=== PATIENT | male | born 1940 | race Caucasian/White ===

== ENCOUNTER 2018-09-20 19:31 | Emergency (ER) | payer MEDICARE, BC ==
--- NOTE | 2018-09-20 21:20 | EDM.PDOC ---
ED HPI GENERAL MEDICAL PROBLEM - General Chief Complaint: General Stated Complaint: MEDICAL Time Seen by Provider: 09/20/18 21:03 Source of Information: Reports: Patient, Family, RN Notes Reviewed History Limitations: Reports: No Limitations - History of Present Illness INITIAL COMMENTS - FREE TEXT/NARRATIVE: 78-year-old gentleman presents to emergency Department a complaint of fatigue, family states that he has fatigue for several months but has progressively gotten worse however is traveling on vacation they've noticed his she has gotten significantly worse he will fall asleep at any point in time has no motivation. He does admit to left arm pain which has been going on for the last 3 days also complains of some vague abdominal pain no shortness of breath no chest pain no nausea vomiting no diaphoresis no problems with bowel movements - Related Data Allergies Allergy/AdvReac Type Severity Reaction Status Date / Time No Known Allergies Allergy Verified 09/20/18 19:56 Home Meds: Home Meds Allopurinol [Zyloprim] 100 mg PO DAILY 09/20/18 [History] Benazepril [Lotensin] 5 mg PO DAILY 09/20/18 [History] Calcitriol 0.5 mcg PO DAILY 09/20/18 [History] Diltiazem HCl [Cardizem Cd] 360 mg PO DAILY 09/20/18 [History] Ferrous Sulfate 325 mg PO BID 09/20/18 [History] Furosemide 40 mg PO DAILY 09/20/18 [History] Furosemide 80 mg PO DAILY 09/20/18 [History] Gabapentin [Neurontin] 300 mg PO DAILY 09/20/18 [History] Insulin Glarg,Human.Rec.Analog [Lantus Solostar] 10 unit SUBCUT BEDTIME [History] Multivitamin [Multi-Vitamin Daily] 1 tab PO DAILY 09/20/18 [History] Pravastatin [Pravachol] 40 mg PO DAILY 09/20/18 [History] Vit C/Ascorbate Ca/Ascorb Sod [Vitamin C] 1 tab PO DAILY 09/20/18 [History] Warfarin [Coumadin] 5 mg PO DAILY 09/20/18 [History] Zinc Gluconate-Zinc Picolinate [Zinc] 1 tab PO DAILY 09/20/18 [History] glipiZIDE [Glucotrol XL] 5 mg PO BRK 09/20/18 [History] hydrALAZINE HCl [Hydralazine HCl] 100 mg PO BID 09/20/18 [History] Past Medical History Cardiovascular History: Reports: Afib, Heart Failure, Heart Valve Replacement, High Cholesterol, Hypertension Gastrointestinal History: Reports: Bowel Obstruction Genitourinary History: Reports: Chronic Renal Insuffiency Musculoskeletal History: Reports: Arthritis, Fracture, Gout Endocrine/Metabolic History: Reports: Diabetes, Type I - Infectious Disease History Infectious Disease History: Reports: Influenza, Pertussis (Whooping Cough) - Past Surgical History GI Surgical History: Reports: Appendectomy, Other (See Below) Other GI Surgeries/Procedures: release of bowel obstruction Social & Family History - Tobacco Use Smoking Status *Q: Current Some Day Smoker Years of Tobacco use: 45 Packs/Tins Daily: 2 Second Hand Smoke Exposure: No - Caffeine Use Caffeine Use: Reports: None - Recreational Drug Use Recreational Drug Use: No ED ROS GENERAL - Review of Systems Review Of Systems: See Below Constitutional: Reports: Weakness, Fatigue HEENT: Reports: No Symptoms Respiratory: Reports: No Symptoms Cardiovascular: Reports: No Symptoms GI/Abdominal: Reports: Abdominal Pain, Flatus. Denies: Constipation, Diarrhea, Nausea, Vomiting : Reports: No Symptoms Musculoskeletal: Reports: Shoulder Pain Skin: Reports: No Symptoms Neurological: Reports: No Symptoms ED EXAM, GENERAL - Physical Exam Exam: See Below Free Text/Narrative:: General: Male, not in any distress, alert and oriented x3 HEENT: head is atraumatic normocephalic, eyes pupils equal round reactive to light, sclera clear no conjunctivitis appreciated. Ears tympanic membranes clear and guthrie landmarks and light reflex are present bilaterally canals are clear. Nose no septal deviation, nares are clear, no blood present. Mouth mucosa is moist and pink no erythema or exudate noted in soft palate, tongue is midline uvula is midline, dentition is intact. Neck: Supple no thyromegaly no tracheal deviation. Nodes: Cervical nodes subclavicular nodes nontender no palpable lymphadenopathy noted. Lungs: clear to auscultation bilaterally with symmetrical respirations, no adventitious noise appreciated. CV: Regular rate and rhythm S1 and S2 appreciated no murmurs rubs or gallops noted. Abdomen: Soft, nontender, no palpable masses or organomegaly appreciated, no distention no guarding bowel sounds are present, surgical scar is clean dry and intact. Neuro: GCS of 15 Skin: Warm and dry, intact Extremities: Trace lower extremity edema appreciated, . Course - Vital Signs Last Recorded V/S: Last Vital Signs Temp 98.4 F 09/20/18 20:06 Pulse 64 09/20/18 20:06 Resp 29 H 09/20/18 20:58 BP 182/68 H 09/20/18 20:58 Pulse Ox 98 09/20/18 20:06 - Orders/Labs/Meds Orders: Active Orders 24 hr Category Date Time Status Cardiac Monitoring [RC] STAT Care 09/20/18 22:18 Active Communication Order [RC] Per Unit Routine Care 09/20/18 22:18 Active Communication Order [RC] Per Unit Routine Care 09/20/18 22:18 Active EKG Documentation Completion [RC] ASDIRECTED Care 09/20/18 21:16 Active Peripheral IV Care [RC] . DIRECTED Care 09/20/18 22:41 Active Chest 1V Frontal [CR] Urgent Exams 09/20/18 21:15 Taken Morphine Med 09/20/18 22:18 Active 4 mg IVPUSH Q10M PRN Sodium Chloride 0.9% [Saline Flush] Med 09/20/18 22:41 Active 10 ml FLUSH ASDIRECTED PRN Peripheral IV Insertion Adult [OM.PC] Urgent Oth 09/20/18 22:41 Ordered EKG 12 Lead [EK] Urgent Ther 09/20/18 21:15 Ordered Medication Orders Morphine Sulfate (Morphine) 4 mg IVPUSH Q10M PRN PRN Reason: Chest Pain Stop: 09/21/18 22:19 Sodium Chloride (Saline Flush) 10 ml FLUSH ASDIRECTED PRN PRN Reason: Keep Vein Open Labs: Laboratory Tests 09/20/18 09/20/18 09/20/18 Range/Units 21:33 21:33 21:33 WBC 15.7 H (4.5-11.0) K/uL RBC 3.80 L (4.30-5.90) M/uL Hgb 10.9 L (12.0-15.0) g/dL Hct 34.0 L (40.0-54.0) % MCV 90 (80-98) fL MCH 29 (27-31) pg MCHC 32 (32-36) % Plt Count 184 (150-400) K/uL Neut % (Auto) 83 H (36-66) % Lymph % (Auto) 6 L (24-44) % [place] % (Auto) 10 H (2-6) % Eos % (Auto) 1 L (2-4) % Baso % (Auto) 0 (0-1) % PT (9.5-12.0) sec INR (0.80-1.20) APTT (27.0-36.0) sec D-Dimer, Quantitative 523 H (0.0-400.0) ng/mL Sodium 140 (140-148) mmol/L Potassium 5.1 (3.6-5.2) mmol/L Chloride 105 (100-108) mmol/L Carbon Dioxide 26 (21-32) mmol/L Anion Gap 9.4 (5.0-14.0) mmol/L BUN 49 H (7-18) mg/dL Creatinine 3.3 H (0.8-1.3) mg/dL Est Cr Clr Drug Dosing 22.88 mL/min Estimated GFR (MDRD) 18 L (>60) Glucose 121 H (74-106) mg/dL Lactic Acid (0.4-2.0) mmol/L Calcium 9.8 (8.5-10.1) mg/dL Total Bilirubin 0.4 (0.2-1.0) mg/dL AST 14 L (15-37) U/L ALT 21 (12-78) U/L Alkaline Phosphatase 100 (46-116) U/L Ammonia (11-32) mmol/L Troponin I 0.521 H* (0.000-0.056) ng/mL C-Reactive Protein (0.0-0.3) mg/dL Total Protein 7.0 (6.4-8.2) g/dL Albumin 2.9 L (3.4-5.0) g/dL Globulin 4.1 H (2.3-3.5) g/dL Albumin/Globulin Ratio 0.7 L (1.2-2.2) Lipase 168 (73-393) U/L Procalcitonin ng/mL TSH, Ultra Sensitive 0.674 (0.358-3.740) uIU/mL Ethyl Alcohol mg/dL 09/20/18 09/20/18 09/20/18 Range/Units 21:33 21:33 21:33 WBC (4.5-11.0) K/uL RBC (4.30-5.90) M/uL Hgb (12.0-15.0) g/dL Hct (40.0-54.0) % MCV (80-98) fL MCH (27-31) pg MCHC (32-36) % Plt Count (150-400) K/uL Neut % (Auto) (36-66) % Lymph % (Auto) (24-44) % [place] % (Auto) (2-6) % Eos % (Auto) (2-4) % Baso % (Auto) (0-1) % PT (9.5-12.0) sec INR (0.80-1.20) APTT (27.0-36.0) sec D-Dimer, Quantitative (0.0-400.0) ng/mL Sodium (140-148) mmol/L Potassium (3.6-5.2) mmol/L Chloride (100-108) mmol/L Carbon Dioxide (21-32) mmol/L Anion Gap (5.0-14.0) mmol/L BUN (7-18) mg/dL Creatinine (0.8-1.3) mg/dL Est Cr Clr Drug Dosing mL/min Estimated GFR (MDRD) (>60) Glucose (74-106) mg/dL Lactic Acid 0.9 (0.4-2.0) mmol/L Calcium (8.5-10.1) mg/dL Total Bilirubin (0.2-1.0) mg/dL AST (15-37) U/L ALT (12-78) U/L Alkaline Phosphatase (46-116) U/L Ammonia 6 L (11-32) mmol/L Troponin I (0.000-0.056) ng/mL C-Reactive Protein 14.57 H (0.0-0.3) mg/dL Total Protein (6.4-8.2) g/dL Albumin (3.4-5.0) g/dL Globulin (2.3-3.5) g/dL Albumin/Globulin Ratio (1.2-2.2) Lipase (73-393) U/L Procalcitonin ng/mL TSH, Ultra Sensitive (0.358-3.740) uIU/mL Ethyl Alcohol mg/dL 09/20/18 09/20/18 09/20/18 Range/Units 21:33 21:33 22:28 WBC (4.5-11.0) K/uL RBC (4.30-5.90) M/uL Hgb (12.0-15.0) g/dL Hct (40.0-54.0) % MCV (80-98) fL MCH (27-31) pg MCHC (32-36) % Plt Count (150-400) K/uL Neut % (Auto) (36-66) % Lymph % (Auto) (24-44) % [place] % (Auto) (2-6) % Eos % (Auto) (2-4) % Baso % (Auto) (0-1) % PT 45.5 H (9.5-12.0) sec INR 4.59 H* (0.80-1.20) APTT 57.3 H (27.0-36.0) sec D-Dimer, Quantitative (0.0-400.0) ng/mL Sodium (140-148) mmol/L Potassium (3.6-5.2) mmol/L Chloride (100-108) mmol/L Carbon Dioxide (21-32) mmol/L Anion Gap (5.0-14.0) mmol/L BUN (7-18) mg/dL Creatinine (0.8-1.3) mg/dL Est Cr Clr Drug Dosing mL/min Estimated GFR (MDRD) (>60) Glucose (74-106) mg/dL Lactic Acid (0.4-2.0) mmol/L Calcium (8.5-10.1) mg/dL Total Bilirubin (0.2-1.0) mg/dL AST (15-37) U/L ALT (12-78) U/L Alkaline Phosphatase (46-116) U/L Ammonia (11-32) mmol/L Troponin I (0.000-0.056) ng/mL C-Reactive Protein (0.0-0.3) mg/dL Total Protein (6.4-8.2) g/dL Albumin (3.4-5.0) g/dL Globulin (2.3-3.5) g/dL Albumin/Globulin Ratio (1.2-2.2) Lipase (73-393) U/L Procalcitonin 0.92 ng/mL TSH, Ultra Sensitive (0.358-3.740) uIU/mL Ethyl Alcohol < 3 mg/dL Meds: Medications Generic Name Dose Route Start Last Admin Trade Name Freq PRN Reason Stop Dose Admin Morphine Sulfate 4 mg 09/20/18 22:18 Morphine IVPUSH 09/21/18 22:19 Q10M PRN Chest Pain Sodium Chloride 10 ml 09/20/18 22:41 Saline Flush FLUSH ASDIRECTED PRN Keep Vein Open Discontinued Medications Generic Name Dose Route Start Last Admin Trade Name Freq PRN Reason Stop Dose Admin Aspirin 324 mg 09/20/18 22:18 Aspirin PO 09/20/18 22:19 ONETIME ONE Clopidogrel Bisulfate 300 mg 09/20/18 22:18 Plavix PO 09/20/18 22:19 ONETIME ONE Heparin Sodium (Porcine) 4,000 units 09/20/18 22:18 Heparin Sodium IVPUSH 09/20/18 22:19 ONETIME ONE Heparin Sodium/Dextrose 25,000 units in 500 mls @ 27.216 mls/hr 09/20/18 22: 30 Heparin 25,000 Units In D5w 500 Ml IV TITRATE FREDY Protocol 12 UNITS/KG/HR Departure - Departure Time of Disposition: 22:49 Disposition: DC/Tfer to Acute Hospital 02 Condition: Fair Clinical Impression: NSTEMI (non-ST elevated myocardial infarction) - Discharge Information Referrals: PCP,None [Primary Care Provider] - Forms: ED Department Discharge - My Orders Last 24 Hours: My Active Orders 09/20/18 21:15 Chest 1V Frontal [CR] Urgent EKG 12 Lead [EK] Urgent 09/20/18 21:16 EKG Documentation Completion [RC] ASDIRECTED 09/20/18 22:18 Cardiac Monitoring [RC] STAT Communication Order [RC] Per Unit Routine Communication Order [RC] Per Unit Routine Morphine 4 mg IVPUSH Q10M PRN 09/20/18 22:41 Peripheral IV Care [RC] . DIRECTED Sodium Chloride 0.9% [Saline Flush] 10 ml FLUSH ASDIRECTED PRN Peripheral IV Insertion Adult [OM.PC] Urgent - Assessment/Plan Last 24 Hours: My Active Orders 09/20/18 21:15 Chest 1V Frontal [CR] Urgent EKG 12 Lead [EK] Urgent 09/20/18 21:16 EKG Documentation Completion [RC] ASDIRECTED 09/20/18 22:18 Cardiac Monitoring [RC] STAT Communication Order [RC] Per Unit Routine Communication Order [RC] Per Unit Routine Morphine 4 mg IVPUSH Q10M PRN 09/20/18 22:41 Peripheral IV Care [RC] . DIRECTED Sodium Chloride 0.9% [Saline Flush] 10 ml FLUSH ASDIRECTED PRN Peripheral IV Insertion Adult [OM.PC] Urgent Plan: Assessment Acuity = acute Site and laterality = non-ST elevation myocardial infarction complicated in a patient with known history of hypertension, dyslipidemia and diabetes as well as anticoagulation therapy for atrial fibrillation Etiology = unknown etiology Manifestations = left arm pain and fatigue Location of injury = Home Lab values = WBC elevated 15.7 consistent leukocytosis, hemoglobin low at 10.9 consistent normochromic anemia INR supratherapeutic at 4.59 d-dimer slightly elevated at 523 of uncertain significance creatinine elevated 2.3 consistent chronic renal failure stage G for troponin elevated 0.5 to concern for non-ST elevation myocardial infarction CRP elevated 14.5 albumin low at 2.9 consistent hypoalbuminemia TSH normal at 0.67 EKG demonstrates atrial fibrillation with a right bundle-branch block appreciate any ST elevation 5 or depression, chest x-ray reveals I did review films myself I cannot appreciate any acute process, the official read from radiology is pending. Plan Called discussed case with Dr. Pisano at 22:30 Kindly accepted the patient in transport to [facility] This note was dictated using [employer] voice recognition software please call with any questions on syntax or grammar.
[2018-09-20] MEDS ORDERED: Morphine 4 MG/ML Syringe IVPUSH PRN (22:18)
[2018-09-20] MEDS ORDERED: Aspirin 81 MG Tab.Chew PO ONE (22:18)
[2018-09-20] MEDS ORDERED: Clopidogrel 75 MG Tab PO ONE (22:18)
[2018-09-20] MEDS ORDERED: Heparin Sodium 5,000 Units/ML Vial IVPUSH ONE (22:18)
[2018-09-20] MEDS ORDERED: Heparin Sodium/D5W 25,000 UNITS/500 ML BAG IV SCH (22:30)
[2018-09-20] MEDS ORDERED: Sodium Chloride 0.9% 10 ML Syringe FLUSH PRN (22:41)
--- NOTE | 2018-09-20 23:14 | CRLCR ---
INDICATION: Left arm chest pain TECHNIQUE: Chest radiograph 1 view COMPARISON: None FINDINGS: Mediastinum: The mediastinum is normal in appearance. The heart silhouette is normal in size and morphology. Patient status post TAVR with the Sapiens device. Lung: Hyperinflation is noted bilaterally, suggestive of severe pulmonary emphysema. Minimal bibasilar atelectasis is noted. No sign of pleural effusion seen. No pneumothorax is identified. IMPRESSION: 1. Minimal bibasilar atelectasis is noted. Dictated by Bakari Ibrahim MD @ 09/20/2018 11:12:09 PM Dictated by: Bakari Ibrahim MD @ 09/20/2018 23:12:14 (Electronically Signed)
[2018-09-20] MEDS: Nitroglycerin 0.4 MG Tab.SL SL PRN ×2 (23:21→23:30)
== END 2018-09-20 23:45 ==
LOC: JP.ED 19:31
DX: I21.4 Non-ST elevation (NSTEMI) myocardial infarction (principal); I13.0 Hypertensive heart and chronic kidney disease with heart failure and stage 1 through stage 4 chronic kidney disease, or unspecified chronic kidney disease; N18.9 Chronic kidney disease, unspecified; I50.9 Heart failure, unspecified; E10.22 Type 1 diabetes mellitus with diabetic chronic kidney disease; I48.91 Unspecified atrial fibrillation; E78.00 Pure hypercholesterolemia, unspecified; F17.210 Nicotine dependence, cigarettes, uncomplicated; Z79.899 Other long term (current) drug therapy; Z79.01 Long term (current) use of anticoagulants
CPT/HCPCS: 36415; 71045; 80053; 82140; 83605; 83690; 84145; 84443; 84484; 85025; 85379; 85610; 85730; 86140; 96374; 99284; A9270; G0480; J2270; 93005; 93010; 99285